=== PATIENT | female | born 1965 | race Caucasian/White ===

== ENCOUNTER 2021-03-04 09:33 | Emergency (ER) | payer MEDICAID ==
[~2021-03-04] VITALS: Ht 172.7 cm; Wt 129.7 kg
[2021-03-04] MEDS ORDERED: TOPROL XL100 MG PO (09:55)
[2021-03-04] MEDS ORDERED: LIPITOR 40 MG T40 M1 PO (09:55)
[2021-03-04] MEDS ORDERED: ASA81BEC PO (09:55)
[2021-03-04] MEDS ORDERED: ALBUTEROL2.5 MG/0.1 INH (09:57)
[2021-03-04] MEDS ORDERED: BUDESONIDE0.25 MG/2 (09:57)
[2021-03-04] MEDS ORDERED: VOLTAREN ARTHRI20 GM (09:59)
[2021-03-04] MEDS ORDERED: DRIZALMA SPRINK20 MG (10:00)
[2021-03-04] MEDS ORDERED: TRIAMTERENE/HCT1 CA1 PO (10:00)
[2021-03-04] MEDS ORDERED: METFORMIN HCL500 M3 PO (10:01)
[2021-03-04] MEDS ORDERED: NORVASC10 MG PO (10:01)
[2021-03-04] MEDS ORDERED: KLOR-CON 10 ER10 MEQ PO (10:01)
[2021-03-04] MEDS ORDERED: SPIRIVA INH (10:02)
[2021-03-04] MEDS ORDERED: LISINOPRIL10 MG PO (10:02)
[2021-03-04] MEDS ORDERED: MELOXICAM5 MG (10:03)
[2021-03-04] MEDS ORDERED: INDOMETHACIN20 MG PO (10:03)
[2021-03-04] MEDS ORDERED: PERCOCET PO (10:15)
[2021-03-04] MEDS ORDERED: BACTRIM DS TAB1 EACH PO (10:15)
[2021-03-04] MEDS ORDERED: CEPHALEXIN500 MG PO (10:15)
[2021-03-04 10:25] VITALS: BP 179/83
== END 2021-03-04 10:26 | disposition home or self-care (01) ==
LOC: M.ERS 09:33
DX: N61.0 Mastitis without abscess (principal); E11.9 Type 2 diabetes mellitus without complications; J44.9 Chronic obstructive pulmonary disease, unspecified; Z79.82 Long term (current) use of aspirin; Z79.51 Long term (current) use of inhaled steroids; Z79.84 Long term (current) use of oral hypoglycemic drugs; Z79.1 Long term (current) use of non-steroidal anti-inflammatories (NSAID); Z79.891 Long term (current) use of opiate analgesic; Z79.899 Other long term (current) drug therapy; Z88.5 Allergy status to narcotic agent